=== PATIENT | male | born 1955 | race Caucasian/White ===

== ENCOUNTER 2019-03-10 06:10 | Day surgery (SDC) | payer MEDICARE, MEDICAID ==
[2019-03-10] MEDS ORDERED: PROPOFOL 10 MG/ML VIAL IV ONE (06:11)
[2019-03-10] MEDS ORDERED: LIDOCAINE 2% MDV (20MG/ML) 20ML VIAL IV ONE (06:11)
[2019-03-10] MEDS ORDERED: FENTANYL PF 100MCG/2ML VIAL IV ONE (06:11)
--- NOTE | 2019-03-10 11:21 | Operative Note ---
OPERATION: ESOPHAGOGASTRODUODENOSCOPY with biopsy. PREOPERATIVE DIAGNOSIS: Dysphagia, weight loss, abnormal CT suggesting esophageal mass. POSTOPERATIVE DIAGNOSES: 1. Mid and distal esophageal mass. 2. Retained debris in the mid to proximal esophagus. PROCEDURE: After informed consent was obtained from the patient, he was placed in the left lateral decubitus position in the endoscopy suite, sedated and monitored by the department of anesthesia. A well-lubricated ICN832 gastroscope was placed in the posterior oropharynx under direct visualization and passed to the proximal esophagus. The endoscope was advanced through the proximal, mid, and distal esophagus. In the proximal and mid esophagus, there was debris, which was aspirated with the endoscope. There was some remaining, however. The mid and distal esophagus demonstrated compression from an intraluminal abnormality and mass which was quite friable and circumferential. The endoscope was able to be gently advanced into the proximal stomach, gastric body, antrum, pylorus, duodenal bulb, and sweep. No gastric or duodenal abnormalities were identified. J-turn views of the proximal stomach revealed no obvious gastric mass, particularly in the area of the cardia or the fundus. The endoscope was then straightened after the stomach had been decompressed. Biopsies were obtained from the mid and distal esophageal mass area. No excessive bleeding was noted. I did try to aspirate some of the debris but it was quite thick and was unable to be removed. The endoscope removed from the patient. RECOMMENDATIONS: We will await results of biopsies but in the meantime, we will plan on referring the patient to Dr. Emmanuel for oncologic evaluation. 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 He does not appear at this point to be a surgical candidate but further staging will be necessary. At some point, perhaps a PET scan will be ordered and would be helpful. As always, thank you for allowing me to participate in the healthcare of your patients. CC: Oseas Angel, DO Dr. Debbie VALDOVINOS
== END 2019-03-10 08:10 | disposition home or self-care (01) ==
LOC: HOP 06:10
PROVIDERS: ATTEND Internal Medicine Gastroenterology
DX: R13.10 Dysphagia, unspecified (principal); R63.4 Abnormal weight loss; R93.3 Abnormal findings on diagnostic imaging of other parts of digestive tract; C15.4 Malignant neoplasm of middle third of esophagus; C15.5 Malignant neoplasm of lower third of esophagus; I10 Essential (primary) hypertension; E78.00 Pure hypercholesterolemia, unspecified; J44.9 Chronic obstructive pulmonary disease, unspecified